=== PATIENT | female | born 1965 | race Caucasian/White ===

== ENCOUNTER 2018-07-16 16:45 | Inpatient (IN) | payer OTHER ==
[~2018-07-16] VITALS: Ht 152.4 cm; Wt 44.9 kg
[2018-07-16 16:52] VITALS: BP 154/94
[2018-07-16 18:34] LABS: ABSOLUTE NEUTROPHILS 6.9 thou/uL (1.4-8.2); EOSINOPHILS 1.8 % (0.0-3.0); HEMATOCRIT 43.5 % (37.0-47.0); HEMOGLOBIN 14.2 gm/dL (12.0-15.0); LYMPHOCYTES 30.5 % (24.0-44.0); MCH 30.2 pg (26.0-34.0); MCHC 32.7 g/dL (28.0-37.0); MCV 92.4 fL (80.0-100.0); PLATELET COUNT 273 thou/uL (150-400); POLYS 60.7 % (36.0-66.0); RDW 16.4 % (10.5-14.5); WBC 11.4 thou/uL (4.0-11.0)
[2018-07-16 18:45] LABS: CALCIUM 9.2 mg/dL (8.5-10.1); CREATININE 0.7 mg/dL (0.6-1.0); POTASSIUM 3.6 mmol/L (3.5-5.1)
[2018-07-17 00:12] LABS: BE(vivo) -3.6 mmol/L (-2 to +3); HCO3 23.4 mmol/L (22.0-26.0); PCO2 49.6 mmHg (35.0-45.0); PO2 84.3 mmHg (80.0-100.0); pH 7.291 (7.360-7.450); sO2 95.2 % (92.0-98.0)
[2018-07-17 02:24] LABS: ABSOLUTE NEUTROPHILS 6.6 thou/uL (1.4-8.2); BASOPHILS 1.5 % (0.0-2.0); EOSINOPHILS 1.5 % (0.0-3.0); HEMATOCRIT 42.2 % (37.0-47.0); HEMOGLOBIN 13.9 gm/dL (12.0-15.0); LYMPHOCYTES 24.7 % (24.0-44.0); MCH 30.5 pg (26.0-34.0); MCV 92.5 fL (80.0-100.0); MONOCYTES 5.6 % (1.0-8.0); PLATELET COUNT 267 thou/uL (150-400); POLYS 66.7 % (36.0-66.0); RBC 4.56 mil/uL (4.20-5.00); RDW 17.1 % (10.5-14.5); WBC 9.9 thou/uL (4.0-11.0)
[2018-07-17 02:27] LABS: CALCIUM 8.7 mg/dL (8.5-10.1); CREATININE 0.7 mg/dL (0.6-1.0)
[2018-07-17 02:33] LABS: ALBUMIN 3.6 g/dL (3.4-5.0); TOTAL BILIRUBIN 0.3 mg/dL (<0.1-1.0); TOTAL PROTEIN 7.8 g/dL (6.4-8.2)
[2018-07-17 04:09] VITALS: BP 120/63
[2018-07-17 06:29] LABS: MAGNESIUM 1.8 mg/dL (1.8-2.4); PHOSPHORUS 3.2 mg/dL (2.5-4.9)
[2018-07-17] MEDS ORDERED: SYNTHROID50 MCG PO (06:35)
[2018-07-17 06:36] LABS: CHOLESTEROL 157 mg/dL (<200); HDL CHOLESTEROL 63 mg/dL (>40); LDL CHOLESTEROL 73 mg/dL (<100); TC:HDL 2.5 Ratio (Not establshd); TRIGLYCERIDE 107 mg/dL (<150); VLDL 21 mg/dL (<40)
[2018-07-17] MEDS ORDERED: ASPIR 8181 MG PO (06:37)
[2018-07-17] MEDS ORDERED: SYNTHROID88 MCG PO (06:37)
[2018-07-17 07:22] LABS: FOLIC ACID > 100.0 ng/mL (8.6-58.9)
--- NOTE | 2018-07-17 07:26 | NUR ---
Pt admitted from ER at about 0415 this AM. A/O x 3-4. O2 3L NC. ST/SR. VSS. CIWA scores 2-3. NPO at this time per order. IVF infusing. No apparent distress noted. Bed alarm on. Fall precautions in place. Call light within reach. Shift change report completed with incoming day-shift RN's.
[2018-07-17 08:00] VITALS: BP 124/74
[2018-07-17 15:00] VITALS: BP 170/85
[2018-07-17 15:41] LABS: AMP/METHAMP Negative (Negative); BARBITURATES Negative (Negative); BENZODIAZEPINES Negative (Negative); COCAINE Negative (Negative); METHADONE Negative (Negative); OPIATES Negative (Negative); PCP Negative (Negative)
--- NOTE | 2018-07-17 17:52 | NUR ---
PT A&OX4, VSS AND HAS NO PAIN. PT UP TO BATHROOM 1 ASSIST, UA HAS BEEN COLLECTED. PT ADVANCED TO CLEAR LIQUIDS UNTIL FURTHER NOTICE AND TOLERATED. PT ABD SOFT AND FIRM. WILL CONTINUE TO MONITOR.
[2018-07-17 19:44] VITALS: BP 185/83
--- NOTE | 2018-07-18 04:10 | NUR ---
Assumed care of pt at 2300. Pt a&ox4. Able to ambulate sba to the restroom. No c/o pain. Resting in bed at this time. Call light within reach. Will continue to monitor and assist with needs as they arise.
[2018-07-18 05:17] VITALS: BP 169/74
[2018-07-18 05:47] LABS: HEMATOCRIT 46.6 % (37.0-47.0); HEMOGLOBIN 15.6 gm/dL (12.0-15.0); MCH 31.1 pg (26.0-34.0); MCHC 33.6 g/dL (28.0-37.0); MCV 92.7 fL (80.0-100.0); RBC 5.03 mil/uL (4.20-5.00); RDW 16.5 % (10.5-14.5); WBC 9.2 thou/uL (4.0-11.0)
[2018-07-18 06:13] LABS: CALCIUM 9.9 mg/dL (8.5-10.1); CREATININE 0.8 mg/dL (0.6-1.0); MAGNESIUM 1.8 mg/dL (1.8-2.4); POTASSIUM 3.9 mmol/L (3.5-5.1)
[2018-07-18 08:08] VITALS: BP 157/80
--- NOTE | 2018-07-18 10:00 | NUR ---
cm visit with pt at bedside. intro to cm, transition of care, rehab and home health. pt denied any need for resource for alcohol abuse. " look i stay with my daughter, do not have any money, get food stamps, live outside in summer i am homeless. can not afford my medciation. my daughter might be able to pick me up if she has gas money to drive all the way here"/pt.
[2018-07-18] MEDS ORDERED: SYNTHROID88 MCG PO (14:42)
[2018-07-18] MEDS ORDERED: BENAZEPRIL HCL20 MG PO (14:42)
[2018-07-18 15:04] VITALS: BP 161/74
--- NOTE | 2018-07-18 16:00 | NUR ---
dp took rx and facesheet to [facility] [facility] to be filled. DP dropped off cab voucher and gave to patient's nurse Eden and instructed nurse to call secrurity when patient is ready for dc and pharmacy will call unit when prescription is ready.
[2018-07-18 17:02] VITALS: BP 161/74
--- NOTE | 2018-07-18 17:48 | NUR ---
Assumed pt care this am, was on clear liquids then transitioned to full by Dr. Hernandez after visit. Pt is able to ambualte from bed to toilet, no issues identified or compalaints. Seen by CM, prescriptions arranged to be picked up from our pharmacy prior to leaving. Cab voucher was also given. DC instrutions given to the pt. Pt is to be taken home to her daughters house as indicicated on the voucher, medications picked up, informed security for the cab. Pt is now dc
== END 2018-07-18 17:53 | disposition home or self-care (01) | DRG 440 ==
LOC: ER 16:45 → 4W 07-17 03:07 → EROBS 07-17 03:07 → 4W 07-17 04:11
PROVIDERS: Emergency Medicine; Nurse Practitioner Family; ADMIT Hospitalist
DX: K85.20 Alcohol induced acute pancreatitis without necrosis or infection (principal); F10.120 Alcohol abuse with intoxication, uncomplicated; I10 Essential (primary) hypertension; E78.5 Hyperlipidemia, unspecified; K21.9 Gastro-esophageal reflux disease without esophagitis; E03.9 Hypothyroidism, unspecified; R09.02 Hypoxemia; F17.210 Nicotine dependence, cigarettes, uncomplicated; Z79.82 Long term (current) use of aspirin; Z79.899 Other long term (current) drug therapy; Z88.2 Allergy status to sulfonamides; Z71.6 Tobacco abuse counseling; Z71.41 Alcohol abuse counseling and surveillance of alcoholic
CPT/HCPCS: 10045